=== PATIENT | male | born 1955 | race Caucasian/White ===

== ENCOUNTER → 2017-09-21 | Outpatient (CLI) | payer BC | END | disposition home or self-care (01) | LOC: CDC 10:59 | DX: Z01.810 Encounter for preprocedural cardiovascular examination (principal); G56.02 Carpal tunnel syndrome, left upper limb; M25.532 Pain in left wrist; R94.31 Abnormal electrocardiogram [ECG] [EKG] | CPT/HCPCS: 93000 ==

== ENCOUNTER 2017-11-07 21:02 | Emergency (ER) | payer BC ==
[~2017-11-07] VITALS: Ht 182.9 cm; Wt 131.6 kg
[2017-11-07] MEDS ORDERED: TRAMADOL HCL50 MG PO (23:00)
[2017-11-07] MEDS ORDERED: ERYTHROMYC1 APPLICAT LEFT EYE (23:00)
[2017-11-07] MEDS ORDERED: VIGAMOX 0.60 DROP/3 RIGHT EYE (23:00)
[2017-11-07 23:19] VITALS: BP 133/82
== END 2017-11-07 23:20 | disposition home or self-care (01) ==
LOC: RME 21:02 → EME 21:02 → RME 23:20
DX: S05.02XA Injury of conjunctiva and corneal abrasion without foreign body, left eye, initial encounter (principal); Y93.H1 Activity, digging, shoveling and raking
CPT/HCPCS: 99281; 99284